=== PATIENT | female | born 1950 | race Caucasian/White ===

== ENCOUNTER 2022-04-14 18:31 | Observation (INO) | payer OTHER ==
--- NOTE | 2022-04-14 19:29 | RAD REPORT ---
EXAM DESCRIPTION: RAD - Chest Single View - 04/14/2022 7:15 pm CLINICAL HISTORY: CHEST PAIN Chest pain. COMPARISON: No comparisons FINDINGS: Portable technique limits examination quality. The lungs are grossly clear. The heart is normal in size. No displaced fractures. IMPRESSION: No acute intrathoracic process suspected.
[2022-04-14 19:50] LABS: Absolute Lymphocytes (CBC) 1.3 K/uL (0.7-4.9); Hematocrit 40.7 % (36.0-45.0); MCV 88.2 fL (80-100); MPV 9.4 fL (7.6-11.3); RBC Red Blood Cell Count 4.61 M/uL (3.86-4.86)
[2022-04-14 20:07] LABS: Albumin 3.7 g/dL (3.4-5.0); Bilirubin Direct 0.1 mg/dL (0-0.2); Bilirubin Total 0.4 mg/dL (0.2-1.0); Potassium 4.5 mmol/L (3.5-5.1); Protein, Total 7.3 g/dL (6.4-8.2)
--- NOTE | 2022-04-14 20:25 | ER ---
Nurse's Notes [facility] Name: Tiago Puente Age: 71 yrs Sex: Female : 1950 Arrival Date: 04/14/2022 Time: 18:31 Bed 16 Private MD: Ari Dubois B Diagnosis: Chest pain, unspecified Presentation: 04/14 18:40 Chief complaint: Patient states: i carried a box into my sons apartment. it was big but tw2 not heavy. but once i got inside i got short of breath and pain and radiated to back +nausea and my ears felt plugged up then. Coronavirus screen: At this time, the client does not indicate any symptoms associated with coronavirus-19. Ebola Screen: Patient denies travel to an Ebola-affected area in the 21 days before illness onset. Initial Sepsis Screen: Does the patient meet any 2 criteria? No. Patient's initial sepsis screen is negative. Does the patient have a suspected source of infection? No. Patient's initial sepsis screen is negative. Risk Assessment: Do you want to hurt yourself or someone else? Patient reports no desire to harm self or others. Onset of symptoms was April 14, 2022. 18:40 Method Of Arrival: Ambulatory tw2 18:40 Acuity: KAITLYN 3 tw2 Triage Assessment: 18:45 General: Appears in no apparent distress. Behavior is calm, cooperative, appropriate tw2 for age. Pain: Complains of pain in chest Pain radiates to back. Cardiovascular: Reports chest pain. Historical: - Allergies: 18:42 No Known Allergies; tw2 - Home Meds: 18:42 rosuvastatin 5 mg oral cpSP 1 cap once daily [Active]; candesartan 32 mg oral tab 1 tab tw2 once daily [Active]; Bystolic 5 mg oral tab 1 tab once daily [Active]; - PMHx: 18:42 Hypertension; Hypercholesterolemia; tw2 - PSHx: 18:42 Cholecystectomy; section; tw2 - Immunization history:: Client reports receiving the 2nd dose of the Covid vaccine. - Social history:: Smoking status: Patient denies any tobacco usage or history of. Screenin:58 Abuse screen: Denies threats or abuse. Nutritional screening: No deficits noted. tw2 Tuberculosis screening: No symptoms or risk factors identified. Fall Risk None identified. Assessment: 18:45 Pain: Pain began suddenly. tw2 19:20 General: Appears in no apparent distress. Behavior is calm, cooperative. Pain: ha1 Complains of pain in chest pain. Neuro: Level of Consciousness is awake, alert, obeys commands, Oriented to person, place, time, situation. Respiratory: No deficits noted. Airway is patent Trachea midline Respiratory effort is even, unlabored, Respiratory pattern is regular, symmetrical. GI: No deficits noted. GI: No signs and/or symptoms were reported involving the gastrointestinal system. : No signs and/or symptoms were reported regarding the genitourinary system. 20:31 Reassessment: Patient appears in no apparent distress at this time. Patient and/or ha1 family updated on plan of care and expected duration. Pain level reassessed. Patient is alert, oriented x 3, equal unlabored respirations, skin warm/dry/pink. 22:30 Reassessment: Patient and/or family updated on plan of care and expected duration. Pain ha1 level reassessed. Patient is alert, oriented x 3, equal unlabored respirations, skin warm/dry/pink. Pain: Denies pain. 23:31 Reassessment: Patient appears in no apparent distress at this time. No changes from ha1 previously documented assessment. Patient and/or family updated on plan of care and expected duration. Pain level reassessed. Patient is alert, oriented x 3, equal unlabored respirations, skin warm/dry/pink. Pain: Denies pain. Vital Signs: 18:40 BP 161 / 76; Pulse 82; Resp 17; Temp 98.1(TE); Pulse Ox 99% on R/A; Weight 70.31 kg tw2 (R); Height 4 ft. 10 in. (147.32 cm) (R); Pain 4/10; 22:30 BP 129 / 64; Pulse 81; Resp 17 S; Pulse Ox 99% on R/A; ha1 23:30 BP 145 / 75; Pulse 71; Resp 17 S; Pulse Ox 99% on R/A; ha1 18:40 Body Mass Index 32.39 (70.31 kg, 147.32 cm) tw2 ED Course: 18:31 Patient arrived in ED. mr 18:31 Ari Dubois MD is Private Physician. mr 18:38 Arm band placed on. EKG completed in triage. Results shown to MD. tw2 18:42 Triage completed. tw2 18:46 Patient maintains SpO2 saturation greater than 95% on room air. tw2 18:48 Placed in gown. Bed in low position. Adult w/ patient. tw2 18:56 [facility]C [facility] kb 18:56 Zane Villalba MD is Attending Physician. kb 19:17 XRAY Chest (1 view) In Process Unspecified. EDMS 19:38 Sangeeta Robertson, MORA is Primary Nurse. ha1 20:24 Ned Castellano MD is Hospitalizing Provider. kb 04/15 00:28 No provider procedures requiring assistance completed. Patient admitted, IV remains in kd3 place. 00:29 Client placed on continuous cardiac and pulse oximetry monitoring. NIBP monitoring kd3 applied. Administered Medications: 04/14 21:00 Drug: Aspirin Chewable Tablet 324 mg Route: PO; ha1 23:38 Follow up: Response: No adverse reaction ha1 Medication: 18:58 VIS not applicable for this client. tw2 Outcome: 20:24 Decision to Hospitalize by Provider. kb 04/15 00:28 Admitted to Med/surg kd3 Condition: stable Discharge instructions given to patient, family, Instructed on discharge instructions, follow up and referral plans. Demonstrated understanding of instructions, follow-up care. 00:29 Patient left the ED. kd3 Signatures: Dispatcher [employer] EDKS Sachi Rich FNP-C FNP-Lety Diana Coel mr Laura Melendrez RN RN 2 Jennyfer Payne RN RN kd3 Sangeeta Robertson RN RN 1
--- NOTE | 2022-04-14 20:25 | EDPHYS ---
Physician Documentation [facility] Name: Tiago Puente Age: 71 yrs Sex: Female : 1950 Arrival Date: 04/14/2022 Time: 18:31 Bed 16 Private MD: Ari Dubois B ED Physician Zane Villalba HPI: 04/14 20:25 This 71 yrs old Female presents to ER via Ambulatory with complaints of Chest Pain. kb 20:26 The patient or guardian reports chest pain that is located primarily in the anterior kb chest wall, left. Onset: just prior to arrival. The pain radiates to left back. Associated signs and symptoms: Pertinent positives: nausea. The chest pain is described as a pressure. Duration: The patient or guardian reports a single episode, that is now resolved. Modifying factors: The symptoms are alleviated by rest, the symptoms are aggravated by activity. Severity of pain: At its worst the pain was moderate in the emergency department the pain has resolved and did so while in waiting room. The patient has not experienced similar symptoms in the past. The patient has not recently seen a physician. Pt reports left chest pain that radiated to back that started while carrying a box. States she had some nausea as well. Once here the pain resolved. Historical: - Allergies: 18:42 No Known Allergies; tw2 - Home Meds: 18:42 rosuvastatin 5 mg oral cpSP 1 cap once daily [Active]; candesartan 32 mg oral tab 1 tab tw2 once daily [Active]; Bystolic 5 mg oral tab 1 tab once daily [Active]; - PMHx: 18:42 Hypertension; Hypercholesterolemia; tw2 - PSHx: 18:42 Cholecystectomy; section; tw2 - Immunization history:: Client reports receiving the 2nd dose of the Covid vaccine. - Social history:: Smoking status: Patient denies any tobacco usage or history of. ROS: 20:24 Constitutional: Negative for fever, chills, and weight loss. kb 20:24 Cardiovascular: Positive for chest pain. 20:24 Abdomen/GI: Positive for nausea, Negative for abdominal pain, vomiting, diarrhea. 20:24 All other systems are negative. Exam: 20:24 Constitutional: This is a well developed, well nourished patient who is awake, alert, kb and in no acute distress. Head/Face: Normocephalic, atraumatic. ENT: Moist Mucous membranes Cardiovascular: Regular rate and rhythm with a normal S1 and S2. No gallops, murmurs, or rubs. No pulse deficits. Respiratory: Respirations even and unlabored. No increased work of breathing. Talking in full sentences Abdomen/GI: Soft, non-tender. No distention Skin: Warm, dry with normal turgor. Normal color. MS/ Extremity: Pulses equal, no cyanosis. Neurovascular intact. Full, normal range of motion. Neuro: Awake and alert, GCS 15, oriented to person, place, time, and situation. Moves all extremities. Normal gait. Psych: Awake, alert, with orientation to person, place and time. Behavior, mood, and affect are within normal limits. 20:24 ECG was reviewed by the Attending Physician. Vital Signs: 18:40 BP 161 / 76; Pulse 82; Resp 17; Temp 98.1(TE); Pulse Ox 99% on R/A; Weight 70.31 kg tw2 (R); Height 4 ft. 10 in. (147.32 cm) (R); Pain 4/10; 22:30 BP 129 / 64; Pulse 81; Resp 17 S; Pulse Ox 99% on R/A; ha1 23:30 BP 145 / 75; Pulse 71; Resp 17 S; Pulse Ox 99% on R/A; ha1 18:40 Body Mass Index 32.39 (70.31 kg, 147.32 cm) tw2 MDM: 18:56 Patient medically screened. kb 20:23 Data reviewed: vital signs, nurses notes. Data interpreted: Pulse oximetry: on room air kb is 99 %. Interpretation: normal. Counseling: I had a detailed discussion with the patient and/or guardian regarding: the historical points, exam findings, and any diagnostic results supporting the discharge/admit diagnosis, lab results, radiology results, the need for further work-up and treatment in the hospital. Physician consultation: Goldy HEARN was contacted at 20:23, regarding admission, to the telemetry unit. patient's condition, and will see patient in ED. 20:24 ED course: HEART score 4. kb 04/14 18:56 Order name: Basic Metabolic Panel; Complete Time: 20:07 kb 04/14 18:56 Order name: CBC with Diff; Complete Time: 20:02 kb 04/14 18:56 Order name: LFT's; Complete Time: 20:07 kb 04/14 18:56 Order name: Magnesium; Complete Time: 20:07 kb 04/14 18:56 Order name: NT PRO-BNP; Complete Time: 20:07 kb 04/14 18:56 Order name: Troponin HS; Complete Time: 20:07 kb 04/14 18:49 Order name: EKG - Nurse/Tech; Complete Time: 18:49 tw2 04/14 18:56 Order name: XRAY Chest (1 view); Complete Time: 19:32 kb 04/14 18:56 Order name: EKG; Complete Time: 18:57 kb 04/14 18:56 Order name: Cardiac monitoring; Complete Time: 19:38 kb 04/14 18:56 Order name: IV Saline Lock; Complete Time: 19:38 kb 04/14 18:56 Order name: Labs collected and sent; Complete Time: 19:38 kb 04/14 20:23 Order name: SARS RAPID; Complete Time: 21:42 kb 04/14 18:56 Order name: O2 Per Protocol; Complete Time: 19:38 kb 04/14 18:56 Order name: O2 Sat Monitoring; Complete Time: 19:38 kb EC:24 Rate is 74 beats/min. Rhythm is regular. QRS [place] is Normal. NC interval is normal at kb 130 msec. QRS interval is normal at 84 msec. QT interval is normal at 424 msec. Administered Medications: 21:00 Drug: Aspirin Chewable Tablet 324 mg Route: PO; ha1 23:38 Follow up: Response: No adverse reaction ha1 Disposition Summary: 04/14/22 20:24 Hospitalization Ordered Hospitalization Status: Observation Provider: Ned Castellano Location: Telemetry/MedSurg (observation) kb Condition: Stable kb Problem: new kb Symptoms: are resolved kb Bed/Room Type: Standard Room Assignment: 426(04/14/22 22:46) Diagnosis - Chest pain, unspecified kb Forms: - Medication Reconciliation Form kb - SBAR form kb Signatures: Dispatcher [employer] EDSachi Villegas FNP-C FNP-Ckb Garcia, Cindy RN RN Laura Melendrez RN RN 2 Sangeeta Robertson RN RN ha1 Corrections: (The following items were deleted from the chart) 22:46 20:24 kb cg
[2022-04-14] MEDS ORDERED: ASPIRIN 81 MG CHEWABLE TABLET ONE (21:07)
[2022-04-14 21:40] LABS: SARS-CoV-2 Antigen Rapid Res Negative (Negative)
--- NOTE | 2022-04-14 21:44 | P.HP ---
Certification for Inpatient Patient admitted to: Observation With expected LOS: <2 Midnights Patient will require the following post-hospital care: None Practitioner: I am a practitioner with admitting privileges, knowledge of patient current condition, hospital course, and medical plan of care. Services: Services provided to patient in accordance with Admission requirements found in Title 42 Section 412.3 of the Code of Federal Regulations <Goldy Asif Khris Urban - Last Filed: 04/14/22 21:38> Patient History Date of Service: 04/14/22 Reason for admission: Chest pain History of Present Illness: 71-year-old female with history of hypertension, hyperlipidemia presents emergency department for chest pain. She reports that she was moving a box walking across the parking lot when she got onset of pressure-like chest pain radiating to her back with associated nausea. Her symptoms lasted for approximately 1 hour and were relieved with rest. She is evaluated in the emergency department her EKG was without STEMI criteria her initial high- sensitivity troponin was negative5.0 chest x-ray negative for any acute findings. Patient was given aspirin in the emergency department ED provider wishes to admit under observation for ACS rule out. - Past Medical/Surgical History -: Hypertension -: Hyperlipidemia -: Cholecystectomy -: x 3 Psychosocial/ Personal History: Lives at home with family. - Family History Mother -: Heart disease Father -: Kidney disease Brother -: Heart disease Sister -: Heart disease - Social History Smoking Status: Never smoker Alcohol use: No CD- Drugs: No Caffeine use: Yes Place of Residence: Home <Goldy Asif - Last Filed: 04/14/22 21:38> Date of Service: 04/15/22 <Ned Castellano - Last Filed: 04/15/22 15:37> Allergies No Known Allergies Allergy (Unverified 04/15/22 00:33) Review of Systems 10-point ROS is otherwise unremarkable Cardiovascular: Chest Pain Gastrointestinal: Nausea <Goldy Asif - Last Filed: 04/14/22 21:38> Physical Examination - Physical Exam General: Alert, In no apparent distress, Oriented x3 HEENT: Atraumatic, PERRLA, Mucous membr. moist/pink, EOMI, Sclerae nonicteric Neck: Supple, 2+ carotid pulse no bruit, No LAD, Without JVD or thyroid abnormality Respiratory: Clear to auscultation bilaterally, Normal air movement Cardiovascular: Regular rate/rhythm, Normal S1 S2 Capillary refill: <2 Seconds Gastrointestinal: Normal bowel sounds, No tenderness Musculoskeletal: No tenderness Integumentary: No rashes Neurological: Normal speech, Normal strength at 5/5 x4 extr, Normal tone, Normal affect Lymphatics: No axilla or inguinal lymphadenopathy - Studies Laboratory Data (last 24 hrs) 04/14/22 19:32: WBC 3.70 L, Hgb 13.3, Hct 40.7, Plt Count 197 04/14/22 19:32: Sodium 135 L, Potassium 4.5, BUN 10, Creatinine 0.66, Glucose 104, Magnesium 2.0, Total Bilirubin 0.4, AST 26, ALT 51, Alkaline Phosphatase 92 <Goldy Asif - Last Filed: 04/14/22 21:38> - Studies Laboratory Data (last 24 hrs) 04/14/22 19:32: WBC 3.70 L, Hgb 13.3, Hct 40.7, Plt Count 197 04/14/22 19:32: Sodium 135 L, Potassium 4.5, BUN 10, Creatinine 0.66, Glucose 104, Magnesium 2.0, Total Bilirubin 0.4, AST 26, ALT 51, Alkaline Phosphatase 92 <Ned Castellano - Last Filed: 04/15/22 15:37> Assessment and Plan - Plan Assessment: Chest pain rule out ACS Hypertension Hyperlipidemia Plan: Chest pain rule out ACS: Trend troponins, monitor on telemetry, cardiology consult in place. Continue daily aspirin, patient's beta-jasmeet therapy. Appreciate further input from cardiology. Patient denies ever having previous stress test or echocardiogram. Hypertension: Continue home medications Hyperlipidemia: Continue home medications DVT PPX: Lovenox Code status: Full Discharge Plan: Home Plan to discharge in: 24 Hours - Advance Directives Does patient have a Living Will: No Does patient have a Durable POA for Healthcare: No - Code Status/Comfort Care Code Status Assessed: Yes (Full code) Critical Care: No Time Spent Managing Pts Care (In Minutes): 55 <Goldy Asif - Last Filed: 04/14/22 21:38> Physician Review: Patient Assessed, Agree with Above Assessment and Plan <Ned Castellano - Last Filed: 04/15/22 15:37>
[2022-04-15] MEDS ORDERED: ONDANSETRON 4 MG/2 ML VIAL IV PRN (00:20)
[2022-04-15 01:23] VITALS: BMI 32.0
[2022-04-15 06:26] LABS: Absolute Lymphocytes (CBC) 1.6 K/uL (0.7-4.9); Lymphocytes % 33.6 % (15.3-44.8); MPV 9.5 fL (7.6-11.3); RBC Red Blood Cell Count 4.54 M/uL (3.86-4.86)
[2022-04-15 07:17] LABS: Albumin 3.5 g/dL (3.4-5.0); Bilirubin Total 0.4 mg/dL (0.2-1.0)
[2022-04-15] MEDS ORDERED: PNEUMOCOCCAL VACCINE 0.5 ML IMVAC ONE (08:00)
[2022-04-15] MEDS ORDERED: NEBIVOLOL HCL 5 MG TAB PO SCH (09:00)
[2022-04-15] MEDS ORDERED: ASPIRIN EC 81 MG TAB PO SCH (09:00)
[2022-04-15] MEDS ORDERED: ENOXAPARIN 40 MG/0.4 ML SQ SCH (09:00)
--- NOTE | 2022-04-15 12:31 | EKG ---
Test Date: 2022-04-14 Test Time: 18:35:05 Highway Maintenance Supervisor: ARTURO MEASUREMENT RESULTS: Intervals: Rate: 74 NV: 130 QRSD: 84 QT: 382 QTc: 424 [place]: P: 37 NV: 130 QRS: 52 T: 21 INTERPRETIVE STATEMENTS: Normal sinus rhythm Nonspecific ST and T wave abnormality Abnormal ECG Compared to ECG 10/10/2005 08:52:09 ST (T wave) deviation now present Left ventricular hypertrophy no longer present Electronically Signed On 04-15-22 12:30:49 CDT by Isrrael Rubin
--- NOTE | 2022-04-15 12:52 | ECHO ---
HEIGHT: 5 ft 0 in WEIGHT: 164 lb 1 oz DATE OF STUDY: 04/15/[address]: Isrrael Rubin MD 2-DIMENSIONAL: YES M.MODE: YES DOPPLER: YES COLOR FLOW: YES TDS: PORTABLE: YES DEFINITY: BUBBLE STUDY: DIAGNOSIS: CHEST PAIN CARDIAC HISTORY: CATHERIZATION: NO SURGERY: NO PROSTHETIC VALVE: NO PACEMAKER: NO MEASUREMENTS (cm) DIASTOLIC (NORMALS) SYSTOLIC (NORMALS) IVSd 1.0 (0.6-1.2) LA Diam 2.4 (1.9-4.0) LVEF 72% LVIDd 3.5 (3.5-5.7) LVIDs 2.1 (2.0-3.5) %FS 40% LVPWd 1.0 (0.6-1.2) Ao Diam 2.8 (2.0-3.7) 2 DIMENSIONAL ASSESSMENT: RIGHT ATRIUM: LEFT ATRIUM: RIGHT VENTRICLE: LEFT VENTRICLE: TRICUSPID VALVE: MITRAL VALVE: PULMONIC VALVE: AORTIC VALVE: SCLEROSIS PERICARDIAL EFFUSION: AORTIC ROOT: LEFT VENTRICULAR WALL MOTION: NORMAL DOPPLER/COLOR FLOW: NORMAL COMMENTS: AORTIC SCLEROSIS. NORMAL LEFT VENTRICULAR SIZE AND FUNCTION. NO WALL MOTION ABNORMALITY. NO EFFUSION. TECHNOLOGIST: ANJALI ALCALA
--- NOTE | 2022-04-15 13:38 | RAD REPORT ---
EXAM DESCRIPTION: CT - Chest For Pe Angio - 04/15/2022 1:27 pm CLINICAL HISTORY: r/o pe, shortness of breath COMPARISON: No comparisons TECHNIQUE: Dynamically enhanced axial 3 mm thick images of the chest were obtained during administra tion of <100> mL Isovue 370 IV contrast. Coronal and oblique reconstruction images were generated and reviewed. Exam utilizes a protocol for optimal evaluation of pulmonary arterial tree. Maximum intensity projections 3D imaging was utilized All CT scans are performed using dose optimization technique as appropriate and may include automated exposure control or mA/KV adjustment according to patient size. FINDINGS: Chest Wall: No suspicious thyroid nodules or pathologic lymphadenopathy. Lungs: 6 mm left lower lobe pulmonary nodule. No acute process is present in the lungs. Pleura: No significant effusions or pneumothorax. Mediastinum/ashleigh: No pathologic lymphadenopathy. Moderate hiatal hernia. Mild thickening of the dista l esophagus may reflect esophagitis. Pulmonary arteries/Aorta: No filling defect identified. No aortic aneurysm. Heart: No significant pericardial effusion. Normal heart size. 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 Cholecystectomy. Partial ly imaged low-density right renal lesion which is likely a cyst. Bones: No acute abnormality. IMPRESSION: Negative for pulmonary embolism. No acute findings within the chest. 6 mm left lower lob e pulmonary nodule. Recommend 12 month follow-up chest CT.
--- NOTE | 2022-04-15 15:38 | P.DS ---
Admission Date: 04/14/22 Discharge Date: 04/15/22 Primary Care Provider: Dr. Dubois Disposition: ROUTINE DISCHARGE Discharge Condition: GOOD Reason for Admission: Chest pain Consultations: 1. Cardiology Hospital Course: DIAGNOSES: # Atypical Chest Pain # Left Lower Pulmonary Nodule (6 mm) # Hypertension # Hyperlipidemia HOSPITAL COURSE: Mr. Tiago Puente is a pleasant 71 year old female with a past medical history significant for hypertension and hyperlipidemia who was admitted to the [facility] on 04/14/2022 for chest pain. She was admitted to the Medicine service. Her evaluation revealed a troponin trend of 5.0, 4.4, and 4.3, respectively. Chest x-ray revealed, "no acute intrathoracic process suspected." Transthoracic echocardiogram revealed, "aortic sclerosis. normal left ventricular size and function. no wall motion abnormality. no effusion." Cardiology was consulted and she was evaluated by Dr. Rubin, who has cleared her for discharge with an outpatient cardiac stress test. During her evaluation, a d-dimer was obtained and returned at 747. A CT chest angiogram was ordered and revealed, "Negative for pulmonary embolism. No acute findings within the chest. 6 mm left lower lobe pulmonary nodule." She was notified of this finding and advised to schedule a follow-up CT chest in about 6 months. She verbalized understanding. On 04/15/2022, she was seen on rounds and deemed medically stable for discharge. She was discharged with instructions to schedule follow-up appointments with her PCP (Dr. Dubois) in 3-5 days and with Cardiology (Dr. Rubin) in 5-7 days. She was given the opportunity to ask questions and reported no further questions. Furthermore, all questions were answered to the best of my ability. Today, I personally spent 25 minutes on her case, of which greater than 50% of the time was spent in patient education, counseling, and coordination of care as described above. Vital Signs/Physical Exam: Temp Pulse Resp BP Pulse Ox 97.9 F 74 14 154/69 H 96 04/15/22 12:00 04/15/22 12:00 04/15/22 12:00 04/15/22 12:00 04/15/22 12:00 General: Alert, In no apparent distress, Oriented x3 HEENT: Atraumatic, Mucous membr. moist/pink, EOMI, Sclerae nonicteric Neck: Supple, JVD not distended Respiratory: Clear to auscultation bilaterally, Normal air movement Cardiovascular: No edema, Regular rate/rhythm, Normal S1 S2, No gallops, No rubs, No murmurs Gastrointestinal: Normal bowel sounds, Soft and benign, Non-distended, No tenderness, No rebound, No guarding Musculoskeletal: No clubbing, No swelling (Homans sign negative bilaterally) Integumentary: No rashes Neurological: Normal speech, Cranial nerves 3-12 intact, Normal affect Laboratory Data at Discharge: WBC 4.70 K/uL (4.3-10.9) 04/15/22 07:08 Hgb 13.2 g/dL (12.0-15.0) 04/15/22 07:08 Hct 40.0 % (36.0-45.0) 04/15/22 07:08 Plt Count 162 K/uL (152-406) 04/15/22 07:08 Sodium 138 mmol/L (136-145) 04/15/22 06:06 Potassium 4.0 mmol/L (3.5-5.1) 04/15/22 06:06 BUN 8 mg/dL (7-18) 04/15/22 06:06 Creatinine 0.59 mg/dL (0.55-1.3) 04/15/22 06:06 Glucose 97 mg/dL (74-106) 04/15/22 06:06 Magnesium 2.0 mg/dL (1.8-2.4) 04/14/22 19:32 Total Bilirubin 0.4 mg/dL (0.2-1.0) 04/15/22 06:06 AST 22 U/L (15-37) 04/15/22 06:06 ALT 48 U/L (12-78) 04/15/22 06:06 Alkaline Phosphatase 83 U/L (45-117) 04/15/22 06:06 Triglycerides 76 mg/dL (<150) 04/15/22 06:06 Cholesterol 117 mg/dL (<200) 04/15/22 06:06 HDL Cholesterol 48 mg/dL (40-60) 04/15/22 06:06 Cholesterol/HDL Ratio 2.44 04/15/22 06:06 Home Medications: Candesartan 32 mg PO DAILY 04/15/22 RX: Nebivolol HCl [Bystolic*] 1 tab PO DAILY 04/15/22 RX: Rosuvastatin [Crestor*] 1 tab PO DAILY 04/15/22 Physician Discharge Instructions: 1. Please schedule follow-up with your PCP (Dr. Dubois) in 3-5 days - Please schedule a repeat CT scan of your lungs in 6 months to evaluate the spot on your lung 2. Please schedule follow-up with Cardiology (Dr. Rubin) in 3-5 days - Please schedule a cardiac stress test at this appointment Diet: AHA Activity: Ad mike Followup: Irsrael Rubin MD [ACTIVE - CAN ADMIT] - (retail financial analyst- call to schedule an appointment ) Ari Dubois MD [Primary Care Provider] - (PCP- call to schedule an appointment) Time spent managing pt's care (in minutes): 25
[2022-04-15] MEDS ORDERED: ATORVASTATIN 40 MG TAB PO SCH (21:00)
[2022-04-16 09:11] VITALS: TEMP 98.1; O2SAT 99
[2022-04-16 09:15] VITALS: BP 145/75
--- NOTE | 2022-04-17 19:19 | CON ---
Date of Consultation: 04/15/2022 Reason For Consultation: Chest pain. History Of Present Illness: Mrs. Puente is a 71-year-old white woman with history of gastroesophageal reflux disease, hypertension, dyslipidemia. She came in with symptoms of nausea, chest pain, subste rnal, no radiation, nonexertional. No vomiting or diaphoresis. Denied any PND, orthopnea, pedal chance ma, palpitations, or syncope. Pain radiated to the back, it lasted for about [address] e[address] Ari Dubois. No previous cardiac history. By the time I saw her, she was asymptomatic, espana d a normal EKG, x-ray, BNP, troponin. Past Medical History: As stated above. Allergies: NONE. Review of Systems: Negative. Social History: Negative. Family History: Negative. Medications: Include candesartan, Bystolic, and Crestor. Physical Examination: Vital Signs: Stable, afebrile. HEENT: Negative. Neck: Supple with no bruit. Chest: Clear. CARDIAC: Revealed a regular rhythm and rate. No murmurs, gallops, or rubs. Abdomen: Benign. Extremities: Revealed no clubbing, cyanosis, or edema. Diagnostic Data: Within normal limit. Impression And Plan: This is a patient with atypical chest pain, possibly gastroesophageal reflux di sease, although she feels like this is different. She has ruled out for an AR. I would feel comfort able sending her home. She has multiple cardiac risk factors including her age, blood pressure and d yslipidemia. I suggest an echocardiogram and an outpatient stress test MPI. I will see her in the n ear future. She can go home now. RANI/GILA Voice ID: [id number] Report ID: [id number]
== END 2022-04-15 16:16 | disposition home or self-care (01) ==
LOC: ER 18:31 → ERHOLD 20:37 → 4TH 04-15 00:01
PROVIDERS: ADMIT Internal Medicine; ATTEND Internal Medicine
DX: R07.89 Other chest pain (principal); I10 Essential (primary) hypertension; E78.5 Hyperlipidemia, unspecified; R91.1 Solitary pulmonary nodule; Z20.822 Contact with and (suspected) exposure to COVID-19; Z90.49 Acquired absence of other specified parts of digestive tract; Z82.49 Family history of ischemic heart disease and other diseases of the circulatory system; Z84.1 Family history of disorders of kidney and ureter
CPT/HCPCS: 93005; 93306; 85025 ×2; 80048; 36415; 83735; 80061; 85379; 80076; 84484 ×3; 80053; 83880; 71275; 71045; 99285; 87811; Q9967; J1650; G0378 ×2